=== PATIENT | female | born 1930 | race Caucasian/White ===

== ENCOUNTER → 2016-06-09 | Outpatient (CLI) | payer MEDICARE ==
[~2016-06-09] MED LIST: ALEVE 220MG220 MG PO; ANTIVERT 25MG25 MG PO; ASPIRIN 81M81 MG/TA2 PO; BETIMOL 5 ML5 ML OP; COSOPT 2%-0.5%10 ML OU; IMITREX100 MG PO; LUMIGAN OP; MVI; NORCO 325 MG-51 TAB PO; NORVASC2.5 MG PO; POTASSIUM GLUC550 M1 PO; PRILOSEC 20MG20 MG PO; PROAIR HFA0.09 MG/AC IH; REMERON30 MG PO; TYLENOL 500MG500 MG PO; XALATAN EYE DROPS OD; ZOFRAN ODT4 MG PO; [UNRECOGNIZED DRUG - OTHER]
== END ==
LOC: COL.RAD 15:30
DX: R51 Headache (principal)

== ENCOUNTER → 2016-06-15 | Outpatient (CLI) | payer MEDICARE | LOC: COL.VAS 13:15 | DX: I31.3 Pericardial effusion (noninflammatory) (principal); I34.0 Nonrheumatic mitral (valve) insufficiency; R94.39 Abnormal result of other cardiovascular function study; R06.09 Other forms of dyspnea ==

== ENCOUNTER → 2016-08-31 | Outpatient (CLI) | payer MEDICARE | LOC: COL.RAD 12:18 | DX: R27.0 Ataxia, unspecified (principal) ==

== ENCOUNTER → 2017-04-30 | Outpatient (CLI) | payer MEDICARE | LOC: MC.RAD 14:19 | DX: Z12.31 Encounter for screening mammogram for malignant neoplasm of breast (principal); N63.10 Unspecified lump in the right breast, unspecified quadrant; Z98.890 Other specified postprocedural states ==

== ENCOUNTER → 2017-05-31 | Outpatient (CLI) | payer MEDICARE | LOC: MC.RAD 12:48 | DX: N63.10 Unspecified lump in the right breast, unspecified quadrant (principal); Z98.890 Other specified postprocedural states ==

== ENCOUNTER 2017-06-11 16:01 | Emergency (ER) | payer MEDICARE ==
[~2017-06-11] VITALS: Ht 152.4 cm; Wt 58.2 kg
[2017-06-11 16:09] VITALS: PULSE 71; TEMP 96.5
[2017-06-11 16:33] LABS: BASO % 0.4 % (0.0-2.0); EOS # 0.2 (0.0-0.7); EOS % 2.1 % (0-4.0); GRAN # 5.3 (1.4-6.5); GRAN % 73.7 % (42.2-75.2); HEMATOCRIT 40.2 % (37.0-47.0); HEMOGLOBIN 13.2 g/dl (12.5-16.0); LYMPH # 1.1 (1.2-3.4); LYMPH % 15.7 % (20.0-51.0); MEAN CELL VOLUME 91 fl (80.0-100.0); MEAN CORPUSCULAR HEMOGLOBIN 30 pg (27.0-31.0); MEAN CORPUSCULAR HGB CONC 33 g/dl (33.0-37.0); MEAN PLATELET VOLUME 9.8 fl (7.4-10.4); MONO # 0.5 (0.1-0.6); MONO % 7.5 % (1.7-9.3); PLATELET COUNT 177 K/mm3 (130-400); RED BLOOD COUNT 4.41 M/mm3 (4.10-5.30); REDCELL DISTRIBUTION WIDTH-CV 12.7 % (11.5-14.5)
[2017-06-11 16:41] LABS: ALBUMIN 3.3 gm/dL (3.5-5.0); BILIRUBIN,TOTAL 0.6 mg/dL (0.0-1.0); CALCIUM 8.8 mg/dL (8.4-10.2); CREATININE, serum 0.58 mg/dL (0.52-1.25); POTASSIUM 3.4 mmol/L (3.4-5.0); TOTAL PROTEIN 6.5 gm/dL (6.4-8.2)
[2017-06-11] MEDS ORDERED: ANORO IH (16:51)
[2017-06-11] MEDS ORDERED: MOTRIN 800800 MG/TAB PO (16:52)
[2017-06-11] MEDS ORDERED: ZOFRAN 4MG T4 MG/TAB PO (16:55)
[2017-06-11] MEDS ORDERED: REMERON30 MG PO (16:55)
[2017-06-11 17:04] LABS: INR 1.1 (0.8-3.0); PROTHROMBIN TIME 12.4 SECONDS (9.7-12.8)
[2017-06-11 17:07] LABS: PARTIAL THROMBOPLASTIN TIME 25.8 SECONDS (26.0-37.0)
[2017-06-11 18:39] LABS: INFLUENZA A NEGATIVE; INFLUENZA B NEGATIVE
[2017-06-11 19:13] LABS: COLLECTION METHOD CLEAN CATCH
[2017-06-11 19:45] LABS: MUCOUS Present /lpf; PH 6 (5-8); SQUAMOUS EPITHELIAL 0-2 /hpf; URINE APPEARANCE Hazy; URINE BACTERIA Rare /hpf; URINE BILIRUBIN Negative (NEGATIVE); URINE BLOOD Negative (NEGATIVE); URINE COLOR Yellow; URINE GLUCOSE 1+ (NEGATIVE); URINE KETONE Trace (NEGATIVE); URINE LEUKOCYTE ESTERASE 2+ (NEGATIVE); URINE NITRATE Positive (NEGATIVE); URINE PROTEIN(semi-quant) Negative (NEGATIVE); URINE RBC 0-2 /hpf
[2017-06-11] MEDS ORDERED: BACTRIM DS 8001 TAB PO (20:07)
[2017-06-11 20:40] VITALS: BP 112/78
== END 2017-06-11 20:40 | disposition home or self-care (01) ==
LOC: COL.ER 16:01
PROVIDERS: Emergency Medicine
DX: E86.9 Volume depletion, unspecified (principal); K52.9 Noninfective gastroenteritis and colitis, unspecified; N39.0 Urinary tract infection, site not specified; I10 Essential (primary) hypertension; Z85.3 Personal history of malignant neoplasm of breast; J45.909 Unspecified asthma, uncomplicated; Z90.11 Acquired absence of right breast and nipple; Z79.82 Long term (current) use of aspirin; G43.909 Migraine, unspecified, not intractable, without status migrainosus; Z88.8 Allergy status to other drugs, medicaments and biological substances
CPT/HCPCS: J0696; J2765